=== PATIENT | female | born 1965 | race Caucasian/White ===

== ENCOUNTER → 2017-05-05 | Outpatient (CLI) | payer BC ==
[~2017-05-05] MED LIST: SERT50TA PO
--- NOTE | 2017-05-05 12:57 | MAMMOGRAPHY REPORT ---
BILATERAL DIGITAL SCREENING MAMMOGRAM TOMOSYNTHESIS WITH CAD: 05/05/2017 CLINICAL HISTORY: Routine screening. Patient has no complaints. TECHNIQUE: Breast tomosynthesis in addition to standard 2D mammography was performed. Current study was also evaluated with a Computer Aided Detection (CAD) system. COMPARISON: Comparison is made to exams dated: 05/03/2016 mammogram, 12/27/2013 mammogram, 12/24/2012 ma mmogram, 10/11/2012 mammogram, 12/22/2011 mammogram, and 12/17/2010 mammogram - [facility]. BREAST COMPOSITION: The tissue of both breasts is almost entirely fatty. FINDINGS: There is an irregular 9 mm asymmetry within the right superior posterior breast on the MLO view, not clearly evident on the cc view but thought to project laterally based on the tomosynthesis localizer bar. Recommend spot compression tomosynthesis views, right X CCL view, and possible breas t ultrasound for further evaluation. The remainder of both breasts are stable compared to prior exams, without suspicious masses, calcific ations, or areas of architectural distortion noted. Nodular asymmetry along the posterior nipple ceci e in the left breast on the cc view middle depth is stable compared to prior exams including the 2010 exam. IMPRESSION: ACR BI-RADS CATEGORY 0: INCOMPLETE EVALUATION: NEED ADDITIONAL IMAGING EVALUATION Right breast asymmetry, for which additional imaging evaluation is recommended. The patient will be called to schedule an appointment. Approximately 10% of breast cancers are not detected with mammography. A negative mammographic report should not delay biopsy if a clinically suggestive mass is present. Sulma Manriquez M.D. ah/:05/05/2017 07:50:57 Spa Consultant: Bibi MARTINEZ(R)(M), [facility] letter sent: Addl Imaging 0 BI-RADS Code: ACR BI-RADS Category 0: Incomplete Evaluation: Need Additional Imaging Evaluation
== END | disposition home or self-care (01) ==
LOC: C.MAMM 07:24
PROVIDERS: ATTEND Obstetrics & Gynecology
DX: Z12.31 Encounter for screening mammogram for malignant neoplasm of breast (principal); N64.89 Other specified disorders of breast

== ENCOUNTER → 2017-05-10 | Outpatient (CLI) | payer BC ==
[~2017-05-10] MED LIST changes: +HYDR-5688 PO
--- NOTE | 2017-05-10 14:12 | MAMMOGRAPHY REPORT ---
UNILATERAL RIGHT DIGITAL DIAGNOSTIC MAMMOGRAM TOMOSYNTHESIS AND TARGETED RIGHT ULTRASOUND: 05/10/2017 CLINICAL HISTORY: Callback from screening mammogram for right breast asymmetry. TECHNIQUE: Breast tomosynthesis in addition to standard 2D mammography was performed. Spot compress ion right MLO and XCCL 2-D and tomosynthesis images and right MLO 2-D and tomosynthesis images were o btained. COMPARISON: Comparison is made to exams dated: 05/05/2017 mammogram, 05/03/2016 mammogram, 12/27/2013 mammogram, and 12/24/2012 mammogram - [facility]. BREAST COMPOSITION: The tissue of the right breast is almost entirely fatty. FINDINGS: The additional mammographic images show an oval 5 mm mass within the right upper outer quad rant. The margins are not completely circumscribed on the additional images. Targeted ultrasound was performed of the right upper outer quadrant in the region of the mammographic asymmetry. In the right breast at 9:00, approximately 13 cm from the nipple, there is an oval hypoe choic non-circumscribed 5 x 2 x 4 m mass. This likely corresponds with the mammographic asymmetry an d is indeterminate. Recommend ultrasound-guided core needle biopsy for further evaluation. IMPRESSION: ACR BI-RADS CATEGORY 4: SUSPICIOUS, TARGETED ULTRASOUND ACR BI-RADS CATEGORY 4: SUSPICIO US Hypoechoic 5 mm mass in the right 9:00 breast on ultrasound, which likely corresponds with the mammog raphic mass. The mass is indeterminate and ultrasound-guided core needle biopsy is recommended for f urther evaluation. A phone call was made to the physician's office to confirm faxed results were received. The patient has been verbally notified of the results. She tentatively scheduled the biopsy before leaving the [facility]. Approximately 10% of breast cancers are not detected with mammography. A negative mammographic report should not delay biopsy if a clinically suggestive mass is present. Sulma Manriquez M.D. /:05/10/2017 11:53:52 Futures Trader: Bibi MARTINEZ(Aminata)(M), [facility] letter sent: Abnormal 4/5 BI-RADS Code: ACR BI-RADS Category 4: Suspicious Ultrasound BI-RADS: ACR BI-RADS Category 4: Suspici ous
== END | disposition home or self-care (01) ==
LOC: C.MAMM 08:44
PROVIDERS: ATTEND Obstetrics & Gynecology
DX: N63.10 Unspecified lump in the right breast, unspecified quadrant (principal)

== ENCOUNTER → 2017-05-17 | Outpatient (CLI) | payer BC ==
[~2017-05-17] MED LIST changes: -HYDR-5688 PO
--- NOTE | 2017-05-17 13:49 | Discharge Instructions ---
Discharge Instructions Procedure Procedure Date: May 17, 2017. Reason for visit: Right Mass. Discharge Discharge Date: May 17, 2017. Discharge Diagnosis: post right breast ultrasound guided core biopsy Instructions Activity Recommendations: Additional Limitations (see below) Return to School/Work: no limitations Recommended Home Diet: No Limitations Provider Instructions: ACTIVITY RECOMMENDATIONS: * No lifting, pushing, pulling or exercising the affected side for three days. RETURN TO SCHOOL/WORK: * You may return to work/school after the procedure, but do not perform any strenuous activities for 24 to 48 hours. MEDICATIONS: * Tylenol (two 325 mg) every four to six hours if needed for mild pain (if not allergic to Tylenol). DIET: * Resume previous diet. SPECIAL CARE INSTRUCTIONS: * Keep biopsy site dry for 24 hours. May shower after 24 hours, but do not soak (bathe) incision. * May remove Tegaderm (plastic patch) tomorrow AFTER showering. * Leave the steri-strips on for one week. Allow the steri-strips to fall off by themselves. If not off after one week, you may remove them. You may place a Bandaid crosswise over the strips, if desired. * Apply ice 10 minutes on and 10 minutes off as needed. * Wear a bra at bedtime to sleep more comfortably for 2-3 days. * Your referring physician should have the results after approximately 5 to 7 business days. * Call for unusual bleeding, fever, drainage, etc or if you have any questions call [phone] during normal business hours or after hours call Dr Dubose, . FOLLOW UP VISIT: Follow-up with Referring Physician as scheduled. Allergies Coded Allergies: Morphine (Verified Adverse Reaction, Severe, N/V, 05/10/11) Deondre Blanco Recommendations: Call your doctor if: * Temperature above 101 degrees * Pain not relieved by pain medicine ordered * There is increased drainage or redness from any incision * You have any unanswered questions or concerns. Your Doctors Instructions noted above were prepared by provider Katrina Dubose. Patient Signature Section: Patient Instructions Signature Page Latha Engel Patient (or Guardian) Signature/Date: I have read and understand the instructions given to me by my caregivers. Caregiver/RN/Doctor Signature/Date: The above-named patient and/or guardian has received patient instructions on this date. + Original Patient Signature Page (only) stays with chart. Please make copy for patient.
--- NOTE | 2017-05-18 14:53 | MAMMOGRAPHY REPORT ---
UNILATERAL RIGHT DIGITAL DIAGNOSTIC MAMMOGRAM TOMOSYNTHESIS: 05/17/2017 CLINICAL HISTORY: 52-year-old woman presents for ultrasound-guided core biopsy of a subtle isoechoic 5 mm mass in the 9:00 right breast, 13 mm from the nipple thought to correlate with a mammographic as ymmetry in the superior posterior breast on the MLO view. Please refer to the report from right breast ultrasound guided core biopsy performed at the same time for full detail. IMPRESSION: POST PROCEDURE IMAGING FOR MARKER PLACEMENT Please refer to the report from right breast ultrasound guided core biopsy performed at the same time for full detail. Approximately 10% of breast cancers are not detected with mammography. A negative mammographic report should not delay biopsy if a clinically suggestive mass is present. Katrina Dubose M.D. ay/:05/17/2017 13:35:38 College Athletic Director: Rama CHAUHAN)(Karine), [facility] BI-RADS Code: Post Procedure Imaging For Marker Placement
--- NOTE | 2017-05-18 14:53 | MAMMOGRAPHY REPORT ---
THIS REPORT HAS BEEN AMENDED. ULTRASOUND GUIDED BIOPSY RIGHT BREAST: 05/17/2017 CLINICAL HISTORY: 52-year-old woman called back from screening mammography for an asymmetry in the underwood perior posterior right breast on the MLO view, found to have a small 5 mm isoechoic mass in the 9:00 right breast on ultrasound. She presents for ultrasound-guided core biopsy. COMPARISON: Comparison is made to exams dated: 05/10/2017 mammogram, 05/10/2017 ultrasound, 05/05/20 17 mammogram, 05/03/2016 mammogram, 12/27/2013 mammogram, and 12/24/2012 mammogram - [facility]. PATIENT CONSENT: The procedure, risks and benefits were discussed with the patient and informed conse nt was obtained both verbally and in writing. Specific risks to this procedure include: bleeding, in fection, puncture of adjacent structure, nontarget biopsy, sampling error, pain, metal allergy and me dication reaction. PROCEDURE DESCRIPTION: A time out was performed and the right breast was agreed as the site of biopsy . The skin was prepped and draped in the usual sterile fashion. The isoechoic 5 mm solid appearing ma ss in the 9:00, far lateral right breast was chosen as the target for biopsy. Subcutaneous and intrap arenchymal 1% buffered lidocaine, with and without epinephrine, was administered as local anesthesia. A skin incision was made. Through the incision, 4 samples were taken with a 14 gauge Achieve biopsy device. A ribbon shaped metallic marker was placed at the biopsy site. Hemostasis was achieved after manual compression. The patient tolerated the procedure well and there was no immediate complication . The samples were sent to the pathology department in an appropriately labeled container. Postprocedure right CC (XCCL) and MLO 2-D and tomosynthesis images were obtained. A new ribbon-shape d biopsy marker clip is seen in the upper outer posterior right breast, aligning with the mammographi c asymmetry in question, confirming mammographicsonographic correlation. There is minimal hematoma/ lidocaine persistent at the biopsy site. IMPRESSION: ULTRASOUND GUIDED BIOPSY Status post ultrasound-guided core biopsy of a 5 mm isoechoic mass in the 9:00 right breast, which al igns with the mammographic asymmetry in question. A biopsy marker clip was placed at the site. The patient will receive notification of the biopsy results from her referring physician. Katrina Dubose M.D. ay/:05/17/2017 14:10:39 Attending Technologist: Rama CHAUHAN)(Karine), [facility] Shelter Supervisor: Dr. Katrina Dubose, [facility] AMENDMENT: 05/24/2017 Katrina Dubose M.D. Pathology results from the ultrasound-guided core biopsy of a small isoechoic mass in the 9:00 right breast yielded a low-grade spindle cell proliferation consistent with leiomyoma. Although this is a benign mass, given the rarity of the pathology results, consider surgical consultation for discussion of possible excision of this lesion.
== END | disposition home or self-care (01) ==
LOC: C.MAMM 12:47
PROVIDERS: ATTEND Obstetrics & Gynecology
DX: D24.1 Benign neoplasm of right breast (principal)

== ENCOUNTER → 2017-09-22 | Outpatient (CLI) | payer BC ==
[~2017-09-22] MED LIST changes: +HYDR-5688 PO; -SERT50TA PO
[2017-09-22 13:10] LABS: BASO % 0.4 %; BASO ABS # 0.03 K/uL (0-0.2); EOS % 1.2 %; EOS ABS # 0.08 K/uL (0-0.5); HEMATOCRIT 42.3 % (37-47); HEMOGLOBIN 14.5 g/dL (12.0-16.0); IG# 0.04 K/uL (0.00-0.02); LYMPH % 23.3 %; MEAN CELL VOLUME 88.5 fL (80-100); MEAN CORPUSCULAR HEMOGLOBIN 30.3 pg (25-34); MEAN CORPUSCULAR HGB CONC 34.3 g/dl (32-36); MEAN PLATELET VOLUME 10.3 fL (7.4-10.4); MONO % 10.5 %; MONO ABS # 0.72 K/uL (0.11-0.59); PLATELET COUNT 239 K/uL (130-400); RED CELL DISTRIBUTION WIDTH SD 42.4 fL (36.4-46.3); WHITE BLOOD COUNT 6.87 K/uL (4.8-10.8)
[2017-09-22 13:17] LABS: ALBUMIN 3.6 gm/dl (3.4-5.0); ALT/SGPT 29 U/L (12-78); AST/SGOT 18 U/L (15-37); BLOOD UREA NITROGEN 12 mg/dl (7-18); CALCIUM 8.5 mg/dl (8.5-10.1); CARBON DIOXIDE 24 mmol/L (21-32); CHOLESTEROL 194 mg/dl (0-200); CREATININE 0.77 mg/dl (0.60-1.20); GLUCOSE 94 mg/dl (70-99); POTASSIUM 3.9 mmol/L (3.5-5.1); SODIUM 139 mmol/L (136-145)
[2017-09-22 13:22] LABS: HEMOGLOBIN A1C 5.4 % (4.5-5.6)
[2017-09-22 13:27] LABS: ALKALINE PHOSPHATASE 67 U/L (45-117); LDL CHOLESTEROL (DIRECT) 138 mg/dl; TOTAL PROTEIN 7.2 gm/dl (6.4-8.2)
== END | disposition home or self-care (01) ==
LOC: C.LABSPEC 12:27
PROVIDERS: ATTEND Internal Medicine
DX: H47.10 Unspecified papilledema (principal); R51 Headache; R53.83 Other fatigue; E04.2 Nontoxic multinodular goiter

== ENCOUNTER → 2017-09-25 | Outpatient (CLI) | payer BC ==
--- NOTE | 2017-09-25 09:18 | DIAGNOSTIC IMAGING REPORT ---
(BARIUM SWALLOW) ESOPHAGUS CLINICAL HISTORY: DYSPHAGIA COMPARISON STUDY: None FLUOROSCOPY TIME: 1.1 minutes. NUMBER OF FLUOROSCOPIC IMAGES: 21 FINDINGS: The patient swallowed impressing granules and barium without difficulty. Rapid sequence swallows the AP and lateral projections reveal no evidence for aspiration. Degenerative changes are present within the cervical spine. No esophageal masses or ulcerations are generalized. The patient swallowed one half and barium tablet without difficulty. No reflux was delineated. IMPRESSION: Normal study Electronically signed by: Patrice Baptiste M.D. 09/25/2017 9:17 AM Dictated Date/Time: 09/25/2017 9:16 AM
== END | disposition home or self-care (01) ==
LOC: C.RAD 08:46
PROVIDERS: ATTEND Internal Medicine
DX: R13.10 Dysphagia, unspecified (principal)

== ENCOUNTER → 2017-09-28 | Outpatient (CLI) | payer BC ==
[~2017-09-28] MED LIST changes: +GADAVIST IV PRN
--- NOTE | 2017-09-28 22:08 | DIAGNOSTIC IMAGING REPORT ---
BRAIN COMBO HISTORY: 52 years-old Female PAPLIDEMIA,HEADACHES acute headache COMPARISON: None available TECHNIQUE: Multiplanar multisequence MRI of the brain was obtained both with and without the use of 13 mL Gadavist FINDINGS: Ux Designer localizer images demonstrate no gross abnormality. There is no restricted diffusion to suggest acute or subacute infarction. Midline fractures including the corpus callosum, brainstem, optic chiasm, infundibulum, pituitary and pineal glands appear unremarkable on the sagittal T1 series. There is no cerebellar tonsillar herniation. No acute intracranial hemorrhage, midline shift, abnormal extra-axial collections, hydrocephalus or intracranial mass. Minimal periventricular T2/FLAIR prolongation adjacent to the posterior horns is indeterminate and may reflect mild chronic microvascular ischemic changes. There is a 4 mm area of increased T2 signal involving the subcortical white matter adjacent to the left ventricular atria, possibly reflecting area of remote insult. Prominent perivascular space within the region of the inferior left lentiform nucleus measures 10 x 7 mm. There is no abnormal intra-axial or extra-axial enhancement identified. The major flow voids at the level of the skull base appear patent. The globes are symmetric and within normal limits. Prominent subarachnoid space about the bilateral optic nerves, image 8 series 5. No significant flattening of the posterior sclera identified. There is mild vertical tortuosity of the optic nerves. Trace left mastoid effusion. The globes, scalp and soft tissues are within normal limits. IMPRESSION: 1. No acute intracranial abnormality identified. 2. No abnormal enhancement. 3. Prominent subarachnoid space about the bilateral optic nerves with mild optic nerve tortuosity are nonspecific findings, however have been reported in cases of idiopathic intracranial hypertension (pseudotumor cerebri). These findings could be correlated with clinical signs and possibly nonemergent lumbar puncture with opening pressure. The above report was generated using voice recognition software. It may contain grammatical, syntax or spelling errors. Electronically signed by: Allen Cerda M.D. 09/28/2017 10:07 PM Dictated Date/Time: 09/28/2017 9:20 PM
== END | disposition home or self-care (01) ==
LOC: C.MRI 18:26
PROVIDERS: ATTEND Internal Medicine
DX: H47.10 Unspecified papilledema (principal); R51 Headache

== ENCOUNTER → 2017-10-11 | Day surgery (SDC) | payer BC ==
[~2017-10-11] VITALS: Ht 169.5 cm; Wt 131.5 kg
[2017-10-11] VITALS (9 sets, daily range): BP systolic 104–156; BP diastolic 53–72; PULSE 62–82; TEMP 36.7–37.1; O2SAT 94–98; Ht 169.5 cm; Wt 131.5 kg
[~2017-10-11] MED LIST changes: -GADAVIST IV PRN
--- NOTE | 2017-10-11 08:58 | Discharge Instructions ---
Discharge Instructions Procedure Procedure Date: October 11, 2017. Reason for visit: Pseudotumor Cerebri/With Opening Pressure. Discharge Discharge Date: October 11, 2017. Discharge Diagnosis: s/p lumbar puncture Instructions Activity Recommendations: 1 Day-May resume regular activity, 48 Hours of decreased exertion Return to School/Work: no limitations Recommended Home Diet: No Limitations Provider Instructions: ACTIVITY RECOMMENDATIONS: * Rest today. * Resume regular activity in one day. MEDICATIONS: * May take Tylenol or Ibuprofen as needed for pain. DIET: * Resume previous diet. SPECIAL CARE INSTRUCTIONS: Call your doctor if: * Temperature above 101 degrees F. * Pain not relieved by pain medicine ordered. * Increased drainage or redness from incision. * Notify your doctor with any questions or concerns. Call your doctor or go to the nearest Emergency Department if you experience: * Increased chest pain or shortness of breath. FOLLOW UP VISIT: Follow-up with Referring Physician as scheduled. Allergies Coded Allergies: Morphine (Verified Adverse Reaction, Severe, N/V, 10/11/17) Deondre Blanco Recommendations: Call your doctor if: * Temperature above 101 degrees * Pain not relieved by pain medicine ordered * There is increased drainage or redness from any incision * You have any unanswered questions or concerns. Your Doctors Instructions noted above were prepared by provider Femi Stubbs. Patient Signature Section: Patient Instructions Signature Page Latha Engel Patient (or Guardian) Signature/Date: I have read and understand the instructions given to me by my caregivers. Caregiver/RN/Doctor Signature/Date: The above-named patient and/or guardian has received patient instructions on this date. + Original Patient Signature Page (only) stays with chart. Please make copy for patient.
--- NOTE | 2017-10-11 09:02 | DIAGNOSTIC IMAGING REPORT ---
FLUOROSCOPICALLY GUIDED LUMBAR PUNCTURE CLINICAL HISTORY: Increased optic nerve pressure. PROCEDURE: The procedure, risks and benefits were discussed with the patient including the risk of spinal headache, bleeding and infection. The patient agreed to the procedure and informed written consent was obtained. The procedure was performed by Dr. Stubbs following a timeout. The right L3-L4 interlaminar space was targeted. Skin overlying the space was prepped and draped in sterile fashion and local anesthesia was achieved with 1% lidocaine. Under intermittent fluoroscopic guidance, a 5 inch 22-gauge spinal needle was directed into the thecal sac. There was immediate return of clear cerebrospinal fluid. Opening pressure was 35 cm of water. A total of 8 cc of clear cerebrospinal fluid was collected in 4 vials and sent to laboratory for analysis. IMPRESSION: 1. Fluoroscopically guided lumbar puncture with collection of 8 cc of clear cerebrospinal fluid which was sent to laboratory for analysis. 2. Elevated opening pressure of 35 cm of water. Electronically signed by: Femi Stubbs M.D. 10/11/2017 9:00 AM Dictated Date/Time: 10/11/2017 8:56 AM
[2017-10-11 09:37] LABS: CSF TOTAL PROTEIN 29.8 mg/dl (15.0-45.0)
== END | disposition home or self-care (01) ==
LOC: C.ACU 07:21
PROVIDERS: ATTEND Psychiatry & Neurology Neurology
DX: H47.10 Unspecified papilledema (principal)

== ENCOUNTER 2020-10-15 10:56 | Inpatient (IN) ==
[2020-10-15] MEDS ORDERED: LIDOCAINE 1% LOCAL 20 ML VIAL ONE (11:58)
[2020-10-15 12:27] LABS: Bilirubin,Total 0.6 mg/dl (0.2-1); Total Protein 7.4 gm/dl (6.4-8.2)
--- NOTE | 2020-10-15 12:42 | History & Physical Bridge Note ---
Date of Service October 15, 2020 History & Physical Bridge Note I have examined the patient, reviewed the History & Physical and in the interval since the performance of the History & Physical I have noted the following changes of clinical significance: no changes noted
--- NOTE | 2020-10-15 12:49 | Procedure Note ---
Procedure Note Date of Service October 15, 2020 Procedure: Pigtail chest tube insertion Linux Unix Administrator: Dr. Lou Mccall Indication: Right-sided loculated effusion Consent: Signed by patient and verified with timeout prior to procedure Anesthesia: 1% lidocaine without epinephrine local Procedure: Consent was verified and timeout performed. Appropriate imaging studies were reviewed prior to the procedure. Patient was placed in a seated position. Appropriate site above the diaphragm on the right midaxillary line fourth intercostal space for chest tube insertion was selected. The skin was prepped and draped in normal sterile fashion. Lidocaine was used for local analgesia. Fluid was aspirated via the finder needle. A small skin lenore was made with the scalpel and the catheter over the needle apparatus was advanced over the rib into the pleural space. With the help of guidewire and Seldinger technique, 14 Romanian pigtail catheter was inserted and connected to Pleur-evac. Serous fluid was aspirated. Initial air leak was appreciated lasted for less than 10 seconds. It has been connected to -20 suction No air leak appreciated after that. Chest x-ray to follow Fluid was sent for labs, culture and cytology. The patient tolerated the procedure without obvious complication Complications: None Blood loss: Less than 2 cc. Coding CPT Codes Pulmonary/Thoracic - Pulmonary and Thoracic: 12563 Tube thoracostomy ([id number]) Pulmonary/Thoracic - Pulmonary and Thoracic: 14989 Pleural drainage w/imaging ([id number]) [facility] Procedure Codes (Charges) Pulmonary/Thoracic Procedure 1: Pulmonary and Thoracic: 94274 Tube thoracostomy Procedure 2: Pulmonary and Thoracic: 45118 Pleural drainage w/imaging
--- NOTE | 2020-10-15 12:52 | Communication Note ---
Date of Service: October 15, 2020 Pulmonary addendum: 55-year-old female with past medical history of pseudotumor cerebri was seen by me in the clinic on 10/14/2020 for right-sided pleural effusion Patient was here for thoracentesis. On bedside ultrasound I found that patient had loculations. Given the loculations and the high probability of it being parapneumonic/empyema Plan was to have a chest tube placed in and likely needing MIST protocol Patient already has a chest tube placed and she tolerated the procedure well. She She is hemodynamically stable. States that she is feeling much better. Dr Randhawa, the admitting hospitalist was called and signout was given. Patient was also updated regarding the same. Please note the above document was generated using voice recognition software. It may contain grammatical, syntax or spelling errors.Any formal questions or concerns about the content, text or information contained within the body of this dictation should be directly addressed to the provider for clarification. Coding Level of Care Code None
--- NOTE | 2020-10-15 12:54 | XRay Report ---
SINGLE VIEW CHEST CLINICAL HISTORY: Chest tube placement. FINDINGS: An AP, portable, upright chest radiograph is compared to chest x-ray and chest CT dated 09/20. The cardiomediastinal silhouette is unremarkable. A pigtail chest tube projects over the righ t lower chest. There is a residual loculated right pleural effusion with right basilar consolidation. This is decreased in size from previous. The left lung appears clear. No pneumothorax is seen. The s keletal structures are osteopenic. The bony thorax is grossly intact. IMPRESSION: 1. A right-sided chest tube has been placed as above. 2. There is a residual right pleural effusion with associated right basilar consolidation. This has d ecreased in size from previous. 3. No pneumothorax is seen. ACT 112: Negative or not required by law. Electronically signed by: Marlon Helm M.D. 10/15/2020 12:53 PM
[2020-10-15] MEDS ORDERED: ACETAMINOPHEN 325 MG TAB PO PRN (13:02)
[2020-10-15 13:17] LABS: Glucose Pleural Fluid 76 mg/dl
[2020-10-15 13:24] LABS: Amylase Pleural Fluid 19 U/L; LDH Pleural Fluid 323 U/L; Total Protein Pleural Fluid 4.6 g/dl
[2020-10-15 13:34] LABS: Appearance Pleural Fluid HAZY; Basophils, Fluid 0 %; Color Pleural Fluid YELLOW; Eosinophils, Fluid 8 %; Lymphocytes, Fluid 60 %; Mono,Macrophage,Mesothelial 5 %; Neutrophils, Fluid 27 %; RBC Pleural Fluid (A) < 3000 /uL; Source Pleural Fluid RIGHT LUNG; WBC Pleural Fluid (A) 665 /uL
--- NOTE | 2020-10-15 14:18 | History & Physical Report ---
Date of Service October 15, 2020 Assessment & Plan (1) Pleural effusion: Mrs. Engel is a 55 year old female with a history of Pseudotumor Cerebri and Obesity who developed a Dry Non-productive Cough over several weeks followed by New Onset Exertional Dyspnea 4 days ago. Patient contacted her PCP and was prescribed Levaquin 750 mg daily along with an anti-tussive. CXR was ordered by PCP showing a large right pleural effusion. Patient was referred to pulmonology -- Dr. Mccall met with her yesterday and arranged for a thoracentesis today. Her Parapneumonic Pleural Effusion appears to be loculated, so a chest tube was inserted. Fluid sent for analysis, culture, etc and admission was recommended for further evaluation and monitoring. -- Admit to Med-Surg. -- Blood cultures x 2. -- Septic workup. -- Await pleural effusion analysis, culture, micro- exam. -- IV Levaquin 750 mg q 24 hours. -- Chest tube attached to vacuum. -- Continue anti-tussive as needed. -- Dr. Mccall consulted. -- DVT prophylaxis. History of Present Illness Chief Complaint: -- Loculated Right Pleural Effusion s/p Chest Tube. Primary Care Provider: Guy Horowitz MD Mrs. Engel is a 55 year old female with a history of Pseudotumor Cerebri and Obesity who developed a Dry Non-productive Cough over several weeks followed by New Onset Exertional Dyspnea 4 days ago. Patient contacted her PCP and was prescribed Levaquin 750 mg daily along with an anti-tussive. CXR was ordered by PCP showing a large right pleural effusion. Patient was referred to pulmonology -- Dr. Mccall met with her yesterday and arranged for a thoracentesis today. Her Parapneumonic Pleural Effusion appears to be loculated, so a chest tube was inserted. Fluid sent for analysis, culture, etc and admission was recommended. 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 She offers no complaints. She denies any fever, chills, chest pain, pain at chest tube site, or any hemoptysis. 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 Allergies Allergy/AdvReac Type Severity Reaction Status Date / Time morphine AdvReac Severe N/V Verified 10/14/20 08:57 Home Medications Medication Instructions Recorded Confirmed Type Robitussin A-C 2 tsp PO Q4 10/15/20 10/15/20 History acetazolamide [Diamox] 250 mg PO TID 10/15/20 10/15/20 History levofloxacin [Levaquin] 750 mg PO DAILY 10/15/20 10/15/20 History Past Med/Surg History Social History Smoking Status: Never smoker Second Hand Exposure: No; Do You Dip or Chew Tobacco: No; Tobacco Cessation Education Requested by Patient: No Hx Alcohol Use: No Hx Substance Use: No Preferred Language: Georgian Communication Ability: Effective Testing Coordinator Required: No Beliefs That Will Affect Care: None Current Living Situation: Spouse Other Information That Helps Us Care for You: No Feels Safe at Home: Yes Safety Concerns: Feels Safe At This Time Assistive Devices: None Review of Systems Review of Systems: All systems reviewed & are unremarkable except as noted in Subjective Physical Exam Physical Exam: GENERAL: Patient in no acute distress. HEENT: Head is atraumatic, normocephalic. EOM's intact. Facies symmetric. No perioral cyanosis. NECK: No JVD. JVP is at the level of the clavicle sitting upright. Carotid upstrokes are + 2 bilaterally. No bruits are noted. CHEST/LUNGS: Absent breath sounds in right lower chest. Otherwise lungs clear. Chest tube in right lateral chest. CVS: S1 and S2 are regular without murmurs, gallops, or rubs. PMI is nondisplaced. No lifts, heaves, or thrills. No abdominal aortic or renal bruits. ABDOMINAL EXAM: Bowel sounds are present. No masses, organomegaly, or tenderness. EXTREMITIES: No clubbing or cyanosis. No edema. Intact posterior tibial and radial pulses bilaterally. NEUROLOGIC EXAM: Patient is awake, alert, and oriented. Pleasant and cooperative. Answers questions appropriately. Speech is clear. Normal movement in all 4 extremities. Gait pattern was not assessed. Results & Data Results & Data ([facility]) Vital Signs (Past 12 Hours) Vital Signs Temp Pulse Resp BP Pulse Ox 10/15/20 13:45 78 20 137/64 95 10/15/20 13:30 76 20 139/64 97 10/15/20 13:15 74 20 127/74 96 10/15/20 13:00 76 20 124/82 96 10/15/20 12:45 36.9 C 73 20 117/68 95 10/15/20 11:19 36.6 C 80 20 108/77 96 Laboratory Results Laboratory Results - last 24 hr 10/15/20 10/15/20 10/15/20 11:55 11:55 14:06 Total Bilirubin 0.6 Lactate Dehydrogenase 153 Total Protein 7.4 Albumin 3.0 L Fluid Neutrophils % Fluid Lymphocytes % Fluid Eosinophils % Fluid Basophils % Fluid Meso/Macro/Waller % Fluid Comment Pleural Fluid Source Pleural Color Pleural Appearance Pleural pH Pleural WBC Pleural RBC Pleural Total Protein Pleural LDH Pleural Glucose Pleural Amylase Pleural Cholesterol COVID-19 Eval Order Covid19 IDNow atMIAC SARS-CoV-2, RNA, NAAT 10/15/20 10/15/20 10/15/20 14:06 Unknown Unknown Total Bilirubin Lactate Dehydrogenase Total Protein Albumin Fluid Neutrophils % 27 Fluid Lymphocytes % 60 Fluid Eosinophils % 8 Fluid Basophils % 0 Fluid Meso/Macro/Waller % 5 Fluid Comment Pleural Fluid Source RIGHT LUNG Pleural Color YELLOW Pleural Appearance HAZY Pleural pH 7.29 L Pleural WBC 665 Pleural RBC < 3000 Pleural Total Protein 4.6 Pleural LDH 323 Pleural Glucose 76 Pleural Amylase 19 Pleural Cholesterol COVID-19 Eval Order SARS-CoV-2, RNA, NAAT Pending 10/15/20 Unknown Total Bilirubin Lactate Dehydrogenase Total Protein Albumin Fluid Neutrophils % Fluid Lymphocytes % Fluid Eosinophils % Fluid Basophils % Fluid Meso/Macro/Waller % Fluid Comment Pleural Fluid Source Pleural Color Pleural Appearance Pleural pH Pleural WBC Pleural RBC Pleural Total Protein Pleural LDH Pleural Glucose Pleural Amylase Pleural Cholesterol Pending COVID-19 Eval Order SARS-CoV-2, RNA, NAAT Diagnostic Findings CXR 10/15/20: An AP, portable, upright chest radiograph is compared to chest x-ray and chest CT dated 10/12/2020. The cardiomediastinal silhouette is unremarkable. A pigtail chest tube projects over the right lower chest. There is a residual loculated right pleural effusion with right basilar consolidation. This is decreased in size from previous. The left lung appears clear. No pneumothorax is seen. The skeletal structures are osteopenic. The bony thorax is grossly intact. IMPRESSION: 1. A right-sided chest tube has been placed as above. 2. There is a residual right pleural effusion with associated right basilar consolidation. This has decreased in size from previous. 3. No pneumothorax is seen. CHEST CT SCAN 09/22/20: 1. There is a moderate to large and simple appearing right pleural effusion with significant atelectasis of the right lower lung. Superimposed pneumonia would be impossible to exclude. 2. There is no left pleural effusion. 3. An indeterminant 9 mm pulmonary nodule is seen in the left lower lobe. This should be followed as per the Fleischner criteria. See below. 4. Hepatic steatosis. 5. Additional findings as above. Medications Administered Medications Robitussin A-C 2 tsp PO Q4 10/15/20 [History Confirmed 10/15/20] acetazolamide [Diamox] 250 mg PO TID 10/15/20 [History Confirmed 10/15/20] levofloxacin [Levaquin] 750 mg PO DAILY 10/15/20 [History Confirmed 10/15/20] Home Medications Acetaminophen (Acetaminophen 325 Mg Tab) 650 mg PO Q6H PRN PRN Reason: Pain Stop: 11/14/20 13:01 Alteplase, Recombinant 10 mg/ (Syringe) 60 mls @ 720 mls/hr IPL Q12H CALLUM; Protocol Stop: 10/18/20 03:04 Dornase Jc 5 ml/ Syringe 30 mls @ 0.0006 mls/min IPL Q12H CALLUM; Protocol Stop: 10/18/20 14:29 Code Status & VTE Plan Code Status Full Code VTE Prophylaxis Plan VTE Prophylaxis will be ordered: Yes Supervising Physician Co-Signing Physician Notes Reviewed, discussed case with MIGUEL as well as Dr. Mccall. Agree with her note above. Patient initially presented same-day surgery for thoracentesis. During ultrasound, she was found to have multiple loculated effusions. Dr. Fine decided to place a right chest tube. Patient subsequently admitted for further treatment. Plan to monitor drainage from chest tube, patient is now on Levaquin for possible infection pending culture results. Consult pulmonology to follow as inpatient. PG Care Time/CCT Total # of Minutes Spent Total Time Spent with Patient: Total time spent is greater than 50% in coordination of care (as documented) at patient's floor/unit and/or counseling patient:40 Coding Level of Care Code 53151 Initial Inpt Care Lvl 3 Diagnoses Pleural effusion J90 Time Spent (min) 55
[2020-10-15] MEDS ORDERED: ONDANSETRON INJ 2 MG/ML 2 ML VIAL IV PRN (15:31)
[2020-10-15] MEDS ORDERED: MAGNESIUM HYDROXIDE SUSP 30 ML UDC PO PRN (15:31)
[2020-10-15] MEDS ORDERED: POLYETHYLENE (MIRALAX) 17 GM PACK PO PRN (15:31)
[2020-10-15] MEDS ORDERED: ZOLPIDEM TARTRATE 5 MG TAB PO PRN (15:31)
[2020-10-15] MEDS ORDERED: ALUMINUM/MAGNESIUM SUSP 30 ML UDC PO PRN (15:31)
[2020-10-15] MEDS ORDERED: guaiFENesin SUGAR FREE 100 MG/5 ML UDC PO PRN (15:42)
[2020-10-15] MEDS: ALTEPLASE, RECOMBINANT 10 MG in SYRINGE 50 ML IPL SCH (16:10)
[2020-10-15] MEDS: levoFLOXacin/D5W 750 MG/150 ML BAG IV SCH (16:55)
[2020-10-15] MEDS: acetaZOLAMIDE 250 MG TAB PO SCH ×2 (16:56→21:13)
[2020-10-15] MEDS: DORNASE ALFA 5 ML in SYRINGE 25 ML IPL SCH (17:11)
[2020-10-15] MEDS: ACETAMINOPHEN 325 MG TAB PO PRN (19:42)
[2020-10-15] MEDS: HEPARIN SOD 5,000 UNIT/0.5 ML VIAL SQ SCH (21:12)
[2020-10-16] MEDS: ACETAMINOPHEN 325 MG TAB PO PRN ×3 (05:34→22:47)
[2020-10-16] MEDS: HEPARIN SOD 5,000 UNIT/0.5 ML VIAL SQ SCH ×3 (05:35→20:58)
[2020-10-16 06:19] LABS: Basophils # (auto) 0.03 K/uL (0-0.2); Basophils % (auto) 0.4 %; Eosinophils # (auto) 0.11 K/uL (0-0.5); Eosinophils % (auto) 1.6 %; Hematocrit (blood only) 41.4 % (37-47); Hemoglobin 13.8 g/dL (12.0-16.0); Immature Granulocytes # (auto) 0.03 K/uL (0.00-0.02); Immature Granulocytes % (auto) 0.4 %; Lymphocytes # (auto) 1.18 K/uL (1.2-3.4); Lymphocytes % (auto) 16.8 %; Mean Corpuscular Hemoglobin 28.9 pg (25-34); Mean Corpuscular Hgb Conc 33.3 g/dL (32-36); Mean Corpuscular Volume 86.8 fL (80-100); Mean Platelet Volume 9.2 fL (7.4-10.4); Monocytes # (auto) 0.84 K/uL (0.11-0.59); Neutrophils # (auto) 4.83 K/uL (1.4-6.5); Neutrophils % (auto) 68.8 %; Platelet Count 392 K/uL (130-400); RDW Coefficient of Variation 13.4 % (11.5-14.5); Red Blood Count 4.77 M/uL (4.2-5.4); White Blood Count 7.02 K/uL (4.8-10.8)
[2020-10-16 06:49] LABS: BUN Creatinine Ratio 19.4 (10-20); Calcium 8.7 mg/dl (8.5-10.1); Creatinine Clr Calc Pharmacy 120.6 ml/min; Est GFR (African American) 110.8 ml/min; Est GFR (Non-African American) 95.6 ml/min; Potassium 3.5 mmol/L (3.5-5.1)
[2020-10-16] MEDS: ALTEPLASE, RECOMBINANT 10 MG in SYRINGE 50 ML IPL SCH ×2 (07:49→18:27)
[2020-10-16] MEDS: acetaZOLAMIDE 250 MG TAB PO SCH ×3 (07:54→20:58)
--- NOTE | 2020-10-16 08:25 | XRay Report ---
XR chest 1V portable CLINICAL HISTORY: Chest tube follow-up COMPARISON STUDY: 10/15/2020 FINDINGS: The cardiac and mediastinal contours remain stable. There is a right-sided pigtail pleural catheter. There is no pneumothorax. There is improving aeration of the right lung base. Trace right p leural fluid is suspected.[ IMPRESSION: 1. No change in position of the right-sided chest tube 2. Decreasing right pleural effusion with improving aeration of the right lung base. ACT 112: Negative or not required by law. Electronically signed by: Patrice Baptiste M.D. 10/16/2020 8:24 AM
[2020-10-16] MEDS: DORNASE ALFA 5 ML in SYRINGE 25 ML IPL SCH ×2 (08:50→19:48)
--- NOTE | 2020-10-16 11:00 | Pulmonary Consultation ---
Date of Consultation October 16, 2020 Assessment & Plan (1) Loculated pleural effusion: --Loculated right-sided pleural effusion S/p pigtail catheter placement 10/15/2020, fluid exudative as per lights criteria Mostly lymphocytic Pleural fluid: LDH 323, protein 4.6, pH 7.29, glucose 76 Serum: LDH 153, total protein 7.4 Likely represents parapneumonic effusion. Follow-up culture Continue with mist protocol --Right lower lobe pneumonia COVID-19 PCR negative ESR 81 Continue with antibiotics Procalcitonin 0.05 Plan: Chest x-ray from today shows improvement in the right-sided pleural effusion. Chest tube level 1100 mL. No airleak appreciated. Continue with mist protocol Continue with antibiotics Please note the above document was generated using voice recognition software. It may contain grammatical, syntax or spelling errors.Any formal questions or concerns about the content, text or information contained within the body of this dictation should be directly addressed to the provider for clarification. (2) Pneumonia: History of Present Illness Attending Physician: Philip Dumas History of Present Illness 55-year-old female coming to pulmonary because of right-sided pleural effusion Past medical history: Glaucoma, morbid obesity Patient is known to me from the clinic. Yesterday she came to the hospital to have same-day thoracentesis done. On the ultrasound she was found to have loculations. Plan was made to have chest tube insertion instead At the time of examination today patient said that she is feeling much better. Overnight she did complain of some tenderness at the site of the chest tube. Denies any shortness of breath, no cough, no headache, no nausea, no vomiting. Denies any fever or chills. No dysuria, no diarrhea. Fair appetite. Social history: Non-smoker, no illicit drug use, no alcohol use. 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 No exposure to any chemicals or fumes Pets: None. 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 Allergies Allergy/AdvReac Type Severity Reaction Status Date / Time morphine AdvReac Severe N/V Verified 10/14/20 08:57 Home Medications Medication Instructions Recorded Confirmed Type Robitussin A-C 2 tsp PO Q4 10/15/20 10/15/20 History acetazolamide [Diamox] 250 mg PO TID 10/15/20 10/15/20 History levofloxacin [Levaquin] 750 mg PO DAILY 10/15/20 10/15/20 History Patient History Social History Smoking Status: Never smoker Second Hand Exposure: No; Do You Dip or Chew Tobacco: No; Tobacco Cessation Education Requested by Patient: No Hx Alcohol Use: No Hx Substance Use: No Preferred Language: Tamazight Communication Ability: Effective Senior Software Developer Required: No Beliefs That Will Affect Care: None Current Living Situation: Spouse Other Information That Helps Us Care for You: No Feels Safe at Home: Yes Safety Concerns: Feels Safe At This Time Assistive Devices: None Review of Systems Review of Systems: All systems reviewed & are unremarkable except as noted in HPI & below Physical Exam Physical Exam: Constitutional: No acute distress HEENT: EOMI, PERRLA Respiratory system: Good air entry bilaterally, no wheeze, no rhonchi, mild crackles right lower lobe CVS: S1-S2 positive, no murmurs or gallops Abdomen: Soft, nontender, nondistended, positive bowel sounds x4, obese Extremities: +2 pulses bilaterally radialis/ dorsalis pedis, no cyanosis, no edema Neuro: Awake alert oriented x3 Psych: Normal mood and affect G/U: No Aiken Right-sided chest tube in place Skin: no rashes, warm and dry Lymphatic: no cervical or axillary lymphadenopathy Results & Data Results & Data ([facility]) Vital Signs (Past 12 Hours) Vital Signs Temp Pulse Resp BP Pulse Ox 10/16/20 07:53 36.7 C 67 16 145/77 H 97 10/16/20 05:50 10/16/20 05:50 PG Care Time/CCT Total # of Minutes Spent Total Time Spent with Patient: Total time spent is greater than 50% in coordination of care (as documented) at patient's floor/unit and/or counseling patient: Coding Level of Care Code 33929 Initial Inpt Care Lvl 3 Diagnoses Loculated pleural effusion J90 Pneumonia J18.9
[2020-10-16] MEDS: levoFLOXacin/D5W 750 MG/150 ML BAG IV SCH (16:45)
--- NOTE | 2020-10-16 22:12 | Hospitalist Progress Note ---
Date of Service October 16, 2020 Assessment & Plan (1) Loculated pleural effusion: Mrs. Engel is a 55 year old female with a history of Pseudotumor Cerebri and Obesity who developed a Dry Non-productive Cough over several weeks followed by New Onset Exertional Dyspnea 4 days ago. Patient contacted her PCP and was prescribed Levaquin 750 mg daily along with an anti-tussive. CXR was ordered by PCP showing a large right pleural effusion. Patient was referred to pulmonology -- Dr. Mccall met with her yesterday and arranged for a thoracentesis today. Her Parapneumonic Pleural Effusion appears to be loculated, so a chest tube was inserted. Fluid sent for analysis, culture, etc and admission was recommended for further evaluation and monitoring. -- Admit to Med-Surg. -- Blood cultures x 2. -- Septic workup. -- Appears exudative. -will continue current antibiotics as stated below -- IV Levaquin 750 mg q 24 hours. -- Chest tube attached to vacuum. -- Continue anti-tussive as needed. -- Dr. Mccall consulted. -- DVT prophylaxis. (2) Pneumonia: as stated above. Admission and Anticipated Discharge Date Admission Date: October 15, 2020 Subjective Patient reports feeling well. She has no new complaints. Review of Systems Review of Systems: All systems reviewed & are unremarkable except as noted in HPI & below Physical Exam Physical Exam: GENERAL: Patient in no acute distress. HEENT: Head is atraumatic, normocephalic. EOM's intact. Facies symmetric. No perioral cyanosis. NECK: No JVD. JVP is at the level of the clavicle sitting upright. Carotid up strokes are + 2 bilaterally. No bruits are noted. CHEST/LUNGS: Absent breath sounds in right lower chest. Otherwise lungs clear. Chest tube in right lateral chest. CVS: S1 and S2 are regular without murmurs, gallops, or rubs. PMI is nondisplaced. No lifts, heaves, or thrills. No abdominal aortic or renal bruits. ABDOMINAL EXAM: Bowel sounds are present. No masses, organomegaly, or tendern ess. EXTREMITIES: No clubbing or cyanosis. No edema. Intact posterior tibial and radial pulses bilaterally. NEUROLOGIC EXAM: Patient is awake, alert, and oriented. Pleasant and cooperative. Answers questions appropriately. Speech is clear. Normal movement in all 4 extremities. Gait pattern was not assessed. Results & Data Results & Data ([facility]) Vital Signs (Past 12 Hours) Vital Signs Temp Pulse Resp BP Pulse Ox 10/16/20 15:30 37.0 C 73 16 129/69 94 10/16/20 11:34 36.8 C 75 16 142/82 H 97 PG Care Time/CCT Total # of Minutes Spent Total Time Spent with Patient: Total time spent is greater than 50% in coordination of care (as documented) at patient's floor/unit and/or counseling patient: Coding Level of Care Code 53205 Subseq Hosp Care Lvl 3 Diagnoses Loculated pleural effusion J90 Pneumonia J18.9 Time Spent (min) 25
[2020-10-17] MEDS: ALTEPLASE, RECOMBINANT 10 MG in SYRINGE 50 ML IPL SCH ×2 (06:10→18:22)
[2020-10-17 06:20] LABS: Basophils # (auto) 0.04 K/uL (0-0.2); Basophils % (auto) 0.4 %; Eosinophils % (auto) 2.1 %; Hematocrit (blood only) 41.3 % (37-47); Hemoglobin 14.3 g/dL (12.0-16.0); Immature Granulocytes # (auto) 0.04 K/uL (0.00-0.02); Immature Granulocytes % (auto) 0.4 %; Lymphocytes % (auto) 17.1 %; Mean Corpuscular Hemoglobin 29.5 pg (25-34); Mean Corpuscular Hgb Conc 34.6 g/dL (32-36); Mean Corpuscular Volume 85.3 fL (80-100); Mean Platelet Volume 9.4 fL (7.4-10.4); Monocytes # (auto) 1.12 K/uL (0.11-0.59); Neutrophils # (auto) 6.35 K/uL (1.4-6.5); Platelet Count 405 K/uL (130-400); RDW Coefficient of Variation 13.5 % (11.5-14.5); Red Blood Count 4.84 M/uL (4.2-5.4); White Blood Count 9.35 K/uL (4.8-10.8)
[2020-10-17] MEDS: HEPARIN SOD 5,000 UNIT/0.5 ML VIAL SQ SCH ×3 (06:20→21:14)
[2020-10-17 06:52] LABS: BUN Creatinine Ratio 17.6 (10-20); Calcium 9.2 mg/dl (8.5-10.1); Creatinine Clr Calc Pharmacy 133.6 ml/min; Est GFR (African American) 117.5 ml/min; Est GFR (Non-African American) 101.4 ml/min; Potassium 3.3 mmol/L (3.5-5.1)
--- NOTE | 2020-10-17 07:38 | XRay Report ---
XR chest 1V portable CLINICAL HISTORY: f/u COMPARISON STUDY: Chest CT October 12, 2020. Chest radiograph October 16, 2020. FINDINGS: Right pleural catheter remains in place. There has been interval development of a small lat eral right hemithorax. Trace residual right pleural effusion is noted with mild right lung airspace o pacity, slightly increased since prior exam. Cardiac size is normal. IMPRESSION: 1. Right pleural catheter in place. Interval development of a small right pneumothorax. 2. No significant change in a trace residual right pleural effusion. Slight increase in right lung ai rspace opacity. . ACT 112: Negative or not required by law. Electronically signed by: Femi Stubbs M.D. 10/17/2020 7:37 AM
[2020-10-17] MEDS: DORNASE ALFA 5 ML in SYRINGE 25 ML IPL SCH ×2 (07:55→20:04)
[2020-10-17] MEDS: acetaZOLAMIDE 250 MG TAB PO SCH ×3 (09:07→21:14)
[2020-10-17] MEDS: ACETAMINOPHEN 325 MG TAB PO PRN ×2 (10:19→21:14)
--- NOTE | 2020-10-17 13:42 | Pulmonology Progress Note ---
Date of Service October 17, 2020 Assessment & Plan (1) Loculated pleural effusion: --Loculated right-sided pleural effusion S/p pigtail catheter placement 10/15/2020, fluid exudative as per lights criteria Mostly lymphocytic Pleural fluid: LDH 323, protein 4.6, pH 7.29, glucose 76 Serum: LDH 153, total protein 7.4 Likely represents parapneumonic effusion. Cultures negative to date. Continue with mist protocol --Right lower lobe pneumonia COVID-19 PCR negative ESR 81 Continue with antibiotics Procalcitonin 0.05 Plan: Chest x-ray from today shows small lateral right-sided pneumothorax. On asking the nurse the x-ray was taken right after the medication was instilled in the pleural space. I increased the suction to -30. Chest tube level 520 mL. No airleak appreciated. 2 more doses of mist protocol. I will repeat CT chest around noon tomorrow. Continue with antibiotics Please note the above document was generated using voice recognition software. It may contain grammatical, syntax or spelling errors.Any formal questions or concerns about the content, text or information contained within the body of this dictation should be directly addressed to the provider for clarification. (2) Pneumonia: Admission and Anticipated Discharge Date Admission Date: October 15, 2020 Subjective Patient seen and examined at bedside. No acute distress, no adverse events o vernight. Patient denies any chest pain, no shortness of breath. Patient has been moving around in the castillo. Tolerating mist protocol. Review of Systems Review of Systems: All systems reviewed & are unremarkable except as noted in Subjective Physical Exam Physical Exam: Constitutional: No acute distress HEENT: EOMI, PERRLA Respiratory system: Good air entry bilaterally, no wheeze, no rhonchi, minimal crackles right lower lobe CVS: S1-S2 positive, no murmurs or gallops Abdomen: Soft, nontender, nondistended, positive bowel sounds x4, obese Extremities: +2 pulses bilaterally radialis/ dorsalis pedis, no cyanosis, no edema Neuro: Awake alert oriented x3 Psych: Normal mood and affect G/U: No Aiken Right-sided chest tube in place Skin: no rashes, warm and dry Lymphatic: no cervical or axillary lymphadenopathy Results & Data Results & Data ([facility]) Vital Signs (Past 12 Hours) Vital Signs Temp Pulse Resp BP BP Pulse Ox 10/17/20 12:04 36.8 C 78 18 118/78 95 10/17/20 07:51 37.0 C 72 16 114/73 92 10/17/20 05:35 10/17/20 05:35 PG Care Time/CCT Total # of Minutes Spent Total Time Spent with Patient: Total time spent is greater than 50% in coordination of care (as documented) at patient's floor/unit and/or counseling patient: Coding Level of Care Code 61746 Subseq Hosp Care Lvl 3 Diagnoses Loculated pleural effusion J90 Pneumonia J18.9
[2020-10-17] MEDS: levoFLOXacin/D5W 750 MG/150 ML BAG IV SCH (15:30)
[2020-10-17] MEDS: POTASSIUM CHLORIDE CRTAB 20 MEQ TABCR PO SCH (21:14)
--- NOTE | 2020-10-17 22:20 | Hospitalist Progress Note ---
Date of Service October 17, 2020 Assessment & Plan (1) Loculated pleural effusion: Mrs. Engel is a 55 year old female with a history of Pseudotumor Cerebri and Obesity who developed a Dry Non-productive Cough over several weeks followed by New Onset Exertional Dyspnea 4 days ago. Patient contacted her PCP and was prescribed Levaquin 750 mg daily along with an anti-tussive. CXR was ordered by PCP showing a large right pleural effusion. Patient was referred to pulmonology -- Dr. Mccall met with her yesterday and arranged for a thoracentesis today. Her Parapneumonic Pleural Effusion appears to be loculated, so a chest tube was inserted. Fluid sent for analysis, culture, etc and admission was recommended for further evaluation and monitoring. -- Admit to Med-Surg. -- Blood cultures x 2. -- Septic workup. -- Appears exudative. -will continue current antibiotics as stated below -- repeat ct scan -- IV Levaquin 750 mg q 24 hours. -- Chest tube attached to vacuum. -- Chest tube level 520 mL. -- Continue anti-tussive as needed. -- Dr. Mccall consulted. -- DVT prophylaxis. (2) Pneumonia: as stated above. Admission and Anticipated Discharge Date Admission Date: October 15, 2020 Subjective Patient reports no new complaints. Review of Systems Review of Systems: All systems reviewed & are unremarkable except as noted in HPI & below Physical Exam Physical Exam: GENERAL: Patient in no acute distress. HEENT: Head is atraumatic, normocephalic. EOM's intact. Facies symmetric. No perioral cyanosis. NECK: No JVD. JVP is at the level of the clavicle sitting upright. Carotid upstrokes are + 2 bilaterally. No bruits are noted. CHEST/LUNGS: Absent breath sounds in right lower chest. Otherwise lungs clear. Chest tube in right lateral chest. CVS: S1 and S2 are regular without murmurs, gallops, or rubs. PMI is nondisplaced. No lifts, heaves, or thrills. No abdominal aortic or renal bruits. ABDOMINAL EXAM: Bowel sounds are present. No masses, organomegaly, or tenderness. EXTREMITIES: No clubbing or cyanosis. No edema. Intact posterior tibial and radial pulses bilaterally. NEUROLOGIC EXAM: Patient is awake, alert, and oriented. Pleasant and cooperative. Answers questions appropriately. Speech is clear. Normal movement in all 4 extremities. Gait pattern was not assessed. Results & Data Results & Data ([facility]) Vital Signs (Past 12 Hours) Vital Signs Temp Pulse Pulse Resp BP BP Pulse Ox 10/17/20 15:00 36.7 C 80 18 133/84 95 10/17/20 12:04 36.8 C 78 18 118/78 95 PG Care Time/CCT Total # of Minutes Spent Total Time Spent with Patient: Total time spent is greater than 50% in coordination of care (as documented) at patient's floor/unit and/or counseling patient: Coding Level of Care Code 30695 Subseq Hosp Care Lvl 2 Diagnoses Loculated pleural effusion J90 Pneumonia J18.9 Time Spent (min) 25
[2020-10-18] MEDS: ALTEPLASE, RECOMBINANT 10 MG in SYRINGE 50 ML IPL SCH (05:53)
[2020-10-18] MEDS: HEPARIN SOD 5,000 UNIT/0.5 ML VIAL SQ SCH ×3 (06:04→21:05)
[2020-10-18] MEDS: DORNASE ALFA 5 ML in SYRINGE 25 ML IPL SCH (07:32)
--- NOTE | 2020-10-18 07:48 | XRay Report ---
XR chest 1V portable CLINICAL HISTORY: f/u COMPARISON STUDY: Chest radiograph October 17, 2020. FINDINGS: Right pleural catheter remains in place. No pneumothorax is identified. Cardiac size is nor mal. Small right pleural effusion is noted with right mid and lower lung airspace opacity. IMPRESSION: Right pleural catheter in place. No pneumothorax. Small right pleural effusion with pers istent right mid and lower lung airspace opacity. ACT 112: Negative or not required by law. Electronically signed by: Femi Stubbs M.D. 10/18/2020 7:47 AM
[2020-10-18] MEDS: POTASSIUM CHLORIDE CRTAB 20 MEQ TABCR PO SCH ×2 (08:43→21:03)
[2020-10-18] MEDS: acetaZOLAMIDE 250 MG TAB PO SCH ×3 (08:43→21:03)
--- NOTE | 2020-10-18 12:55 | CT Scan Report ---
CT SCAN OF THE CHEST WITHOUT IV CONTRAST CLINICAL HISTORY: Follow-up pleural effusion. Chest tube. COMPARISON STUDY: Chest CT dated 10/12/2020. Chest x-ray dated 10/18/2020. TECHNIQUE: Unenhanced CT scan of the thorax was performed from the thoracic inlet to the upper abdome n. Images are reviewed in the axial, sagittal, and coronal planes. IV contrast was not administered f or this examination. A dose lowering technique was utilized adhering to the principles of ALARA. Exa mination is degraded by motion artifact. CT DOSE: 1188.88 mGy.cm FINDINGS: Thyroid: The thyroid gland is enlarged and heterogeneous. There are numerous subcentimeter low-attenu ation nodules as well as coarse calcifications. Thoracic aorta: The thoracic aorta is normal in caliber and demonstrates standard 3-vessel arch anato my. Heart: The heart is normal in size and without pericardial effusion. Lungs and pleural spaces: Evaluation of the lung parenchyma is compromised by motion artifact. A righ t-sided chest tube is in place. This enters anteriorly between the 4th and 5th ribs, with the tip coi led in the anterior right upper pleural space. There is a moderate residual right pleural effusion wi th persistent atelectasis of the right lower lung. This has decreased in size from previous. The ches t tube is located above and anterior to the residual effusion. There is a small right-sided pneumotho rax. Trace left pleural effusion is noted. Again seen is a 10 mm pleural-based nodule in the left low er lobe seen on image #168. The left lung is otherwise clear. The trachea and central airways are pat ent. Mediastinum: Scattered subcentimeter mediastinal lymph nodes are not pathologically enlarged by size criteria. Chanel: Not well assessed without IV contrast. Axillae: There is no axillary lymphadenopathy. Upper abdomen: A tiny hiatal hernia is noted. Partially visualized upper abdominal viscera is otherwi se grossly unremarkable. Skeletal structures: Degenerative changes noted in the thoracic spine. No lytic or blastic bony lesio ns are seen. IMPRESSION: 1. A right-sided chest tube has been placed as above. There is a small right-sided pneumothorax. 2. The right pleural effusion has decreased in size from previous. There is a moderate residual right pleural effusion with significant atelectasis of the right lower lung. 3. The chest tube is located above and anterior to the remaining pleural effusion. 4. There is trace left pleural effusion. 5. An indeterminant 10 mm pleural-based nodular density is again seen at the left lung base. This uday uld be followed as per the Fleischner criteria. See below. 6. Additional findings as above. Please refer to below summary of Fleischner criteria recommendations for follow-up of incidental CT n odules (Connie Nicholas, Guidelines for management of small pulmonary nodules detected on CT scans: A sta tement from the Fleischner Society, Radiology 237: [phone].) SOLID NODULES Solitary nodule size: <6 mm * low risk patients: no follow-up needed * high risk patients: optional CT at 12 months Solitary nodule size: 6-8 mm * low risk patients: follow-up at 6-12 months, then consider further follow-up at 18-24 months * high risk patients: initial follow-up CT at 6-12 months and then at 18-24 months if no change Solitary nodule size: >8 mm * either low or high risk patients - consider follow-up CT at 3 months, and/or CT-PET, and/or biopsy Multiple nodules size: <6 mm * low risk patients: no routine follow-up * high risk patients: optional CT at 12 months Multiple nodules size: 6-8 mm * low risk patients: follow-up at 3-6 months, then consider further follow-up at 18-24 months * high risk patients: follow-up at 3-6 months, then at 18-24 months if no change Multiple nodules size: >8 mm * low risk patients: follow-up at 3-6 months, then consider further follow-up at 18-24 months * high risk patients: follow-up at 3-6 months, then at 18-24 months if no change Note: newly detected indeterminate nodule in persons 35 years of age or older. * low risk patients: minimal or absent history of smoking and/or other known risk factors * high risk patients: history of smoking or of other known risk factors (e.g. first degree relative with lung cancer, or exposure to asbestos, radon, uranium) * if a nodule up to 8 mm is partly solid or is ground glass further follow-up is required after 24 m onths to exclude possible slow growing adenocarcinoma (DANIEL) SUBSOLID NODULES Solitary pure ground-glass nodule * nodule size <6 mm - no CT follow-up required * nodule size >=6 mm - follow-up CT at 6-12 months, then every 2 years until 5 years Solitary part-solid nodule * nodule size <6 mm - no CT follow-up required * nodule size >=6 mm - follow-up CT at 3-6 months. If unchanged, and solid component remains <6 mm, then annual follow-up for 5 years Multiple subsolid nodules * nodule size <6 mm - follow-up CT at 3-6 months, consider further follow-up at 2 and 4 years if sta ble * nodule size >=6 mm - follow-up CT at 3-6 months, subsequent management based on the most suspiciou s nodule(s) ACT 112: Negative or not required by law. Electronically signed by: Marlon Helm M.D. 10/18/2020 12:53 PM
--- NOTE | 2020-10-18 12:57 | Pulmonology Progress Note ---
Date of Service October 18, 2020 Assessment & Plan (1) Loculated pleural effusion: --Loculated right-sided pleural effusion S/p pigtail catheter placement 10/15/2020, fluid exudative as per lights criteria Mostly lymphocytic Pleural fluid: LDH 323, protein 4.6, pH 7.29, glucose 76 Serum: LDH 153, total protein 7.4 Likely represents parapneumonic effusion. Cultures negative to date. S/p Ms. protocol. Last dose being morning 10/18/2020 --Right lower lobe pneumonia COVID-19 PCR negative ESR 81 Continue with antibiotics Procalcitonin 0.05 Plan: No pneumothorax appreciated on chest x-ray today. I increased the suction to -40. Chest tube level 1270 mL. No airleak appreciated. Patient has completed mist protocol. I will repeat CT chest without contrast today. Continue with antibiotics for total of 10 days Please note the above document was generated using voice recognition software. It may contain grammatical, syntax or spelling errors.Any formal questions or concerns about the content, text or information contained within the body of this dictation should be directly addressed to the provider for clarification. (2) Pneumonia: Admission and Anticipated Discharge Date Admission Date: October 15, 2020 Subjective Patient seen and examined at bedside. No acute distress, no adverse events overnight. Denies any chest pain. Does cough when she takes deep breath. No nausea or vomiting. Patient has finished 6 doses of Mist protocol earlier today morning. Would continue with suction. Review of Systems Review of Systems: All systems reviewed & are unremarkable except as noted in Subjective Physical Exam Physical Exam: Constitutional: No acute distress HEENT: EOMI, PERRLA Respiratory system: Good air entry bilaterally, no wheeze, no rhonchi, minimal crackles right lower lobe CVS: S1-S2 positive, no murmurs or gallops Abdomen: Soft, nontender, nondistended, positive bowel sounds x4, obese Extremities: +2 pulses bilaterally radialis/ dorsalis pedis, no cyanosis, no edema Neuro: Awake alert oriented x3 Psych: Normal mood and affect G/U: No Aiken Right-sided chest tube in place Skin: no rashes, warm and dry Lymphatic: no cervical or axillary lymphadenopathy Results & Data Results & Data ([facility]) Vital Signs (Past 12 Hours) Vital Signs Temp Pulse Resp BP Pulse Ox 10/18/20 12:00 36.5 C 72 22 120/73 97 10/18/20 07:36 36.9 C 74 20 127/75 94 10/17/20 05:35 10/17/20 05:35 PG Care Time/CCT Total # of Minutes Spent Total Time Spent with Patient: Total time spent is greater than 50% in coordination of care (as documented) at patient's floor/unit and/or counseling patient: Coding Level of Care Code 72277 Subseq Hosp Care Lvl 3 Diagnoses Loculated pleural effusion J90 Pneumonia J18.9
[2020-10-18] MEDS: ACETAMINOPHEN 325 MG TAB PO PRN ×2 (13:54→21:03)
[2020-10-18] MEDS: levoFLOXacin/D5W 750 MG/150 ML BAG IV SCH (16:21)
--- NOTE | 2020-10-18 21:57 | Hospitalist Progress Note ---
Date of Service October 18, 2020 Assessment & Plan (1) Loculated pleural effusion: Mrs. Engel is a 55 year old female with a history of Pseudotumor Cerebri and Obesity who developed a Dry Non-productive Cough over several weeks followed by New Onset Exertional Dyspnea 4 days ago. Patient contacted her PCP and was prescribed Levaquin 750 mg daily along with an anti-tussive. CXR was ordered by PCP showing a large right pleural effusion. Patient was referred to pulmonology -- Dr. Mccall met with her yesterday and arranged for a thoracentesis today. Her Parapneumonic Pleural Effusion appears to be loculated, so a chest tube was inserted. Fluid sent for analysis, culture, etc and admission was recommended for further evaluation and monitoring. -- Admit to Med-Surg. -- Blood cultures x 2. -- Septic workup. -- Appears exudative. -will continue current antibiotics as stated below -- repeat ct scan -- IV Levaquin 750 mg q 24 hours. -- Chest tube attached to vacuum. -- Repeat CT scan of chest shows: There is a moderate residual right pleural effusion with significant atelectasis of the right lower lung. -- keep chest tube in. recommend patient sits in chair as she has been in bed during prior days. -- Pulm will see patient on 10/19 -- Continue anti-tussive as needed. -- Dr. Mccall consulted. -- DVT prophylaxis. (2) Pneumonia: as stated above. Admission and Anticipated Discharge Date Admission Date: October 15, 2020 Subjective Patient reports feeling better. No complaints. Review of Systems Review of Systems: All systems reviewed & are unremarkable except as noted in HPI & below Physical Exam Physical Exam: GENERAL: Patient in no acute distress. HEENT: Head is atraumatic, normocephalic. EOM's intact. Facies symmetric. No perioral cyanosis. NECK: No JVD. JVP is at the level of the clavicle sitting upright. Carotid upstrokes are + 2 bilaterally. No bruits are noted. CHEST/LUNGS: Absent breath sounds in right lower chest. Otherwise lungs clear. Chest tube in right lateral chest. CVS: S1 and S2 are regular without murmurs, gallops, or rubs. PMI is nondisplaced. No lifts, heaves, or thrills. No abdominal aortic or renal bruits. ABDOMINAL EXAM: Bowel sounds are present. No masses, organomegaly, or tenderness. EXTREMITIES: No clubbing or cyanosis. No edema. Intact posterior tibial and radial pulses bilaterally. NEUROLOGIC EXAM: Patient is awake, alert, and oriented. Pleasant and cooperative. Answers questions appropriately. Speech is clear. Normal movement in all 4 extremities. Gait pattern was not assessed. Results & Data Results & Data ([facility]) Vital Signs (Past 12 Hours) Vital Signs Temp Pulse Pulse Resp BP BP Pulse Ox 10/18/20 15:59 36.7 C 78 20 137/82 96 10/18/20 12:00 36.5 C 72 22 120/73 97 PG Care Time/CCT Total # of Minutes Spent Total Time Spent with Patient: Total time spent is greater than 50% in coordination of care (as documented) at patient's floor/unit and/or counseling patient: Coding Level of Care Code 69332 Subseq Hosp Care Lvl 2 Diagnoses Loculated pleural effusion J90 Pneumonia J18.9 Time Spent (min) 25
[2020-10-19] MEDS: ACETAMINOPHEN 325 MG TAB PO PRN (05:44)
[2020-10-19] MEDS: HEPARIN SOD 5,000 UNIT/0.5 ML VIAL SQ SCH (05:45)
[2020-10-19] MEDS: acetaZOLAMIDE 250 MG TAB PO SCH (07:35)
[2020-10-19] MEDS: POTASSIUM CHLORIDE CRTAB 20 MEQ TABCR PO SCH (07:35)
--- NOTE | 2020-10-19 08:30 | XRay Report ---
XR chest 1V not portable CLINICAL HISTORY: Right-sided chest tube. COMPARISON STUDY: 10/18/2020 FINDINGS: The cardiac and mediastinal contours remain stable. The right-sided pleural pigtail cathete r remains unchanged in position. There is persistent right pleural effusion with associated right mid and lower lung zone airspace opacities. No pneumothorax is visualized.[ IMPRESSION: 1. No change in position of the right-sided pleural pigtail catheter 2. No pneumothorax 3. Persistent right pleural effusion with associated right mid and lower lung zone airspace opacities ACT 112: Negative or not required by law. Electronically signed by: Patrice Baptiste M.D. 10/19/2020 8:28 AM
--- NOTE | 2020-10-19 08:34 | Hospitalist Progress Note ---
Date of Service October 19, 2020 Assessment & Plan (1) Loculated pleural effusion: Mrs. Engel is a 55 year old female with a history of Pseudotumor Cerebri and Obesity who developed a Dry Non-productive Cough over several weeks followed by New Onset Exertional Dyspnea 4 days ago. Patient contacted her PCP and was prescribed Levaquin 750 mg daily along with an anti-tussive. CXR was ordered by PCP showing a large right pleural effusion. Patient was referred to pulmonology -- Dr. Mccall met with her yesterday and arranged for a thoracentesis today. Pulmonary on consult Parapneumonic pleural effusion appeared to be loculated s/p pigtail catheter insertion 10/[address] Mccall Fluid sent for analysis, culture, etc and admission was recommended for further evaluation and monitoring --> EXUDATIVE per Lights criteria Continues on Levaquin IV Q24h (started 10/15, on day 4 of therapy) Repeat CT Chest 10/18: * There is a moderate residual right pleural effusion with significant atelectasis of the right lower lung. * Keep chest tube in. recommend patient sits in chair as she has been in bed during prior days. (increased to suction 10/18 by pulmonary) Completed MIST II protocol on 10/18 Antitussive prn (2) Pneumonia: as stated above -- on Levaquin IV (3) Pseudotumor cerebri: Hx of Continue acetazolamide 250mg PO TID (4) DVT prophylaxis: Heparin SQ while inpatient Admission and Anticipated Discharge Date Admission Date: October 15, 2020 Results & Data Results & Data ([facility]) Vital Signs (Past 12 Hours) Vital Signs Temp Pulse Resp BP Pulse Ox 10/19/20 07:04 36.8 C 70 16 126/82 96 10/18/20 23:35 36.9 C 77 18 135/77 95 PG Care Time/CCT Total # of Minutes Spent Total Time Spent with Patient: Total time spent is greater than 50% in coordination of care (as documented) at patient's floor/unit and/or counseling patient: Coding Diagnoses Loculated pleural effusion J90 Pneumonia J18.9 Pseudotumor cerebri G93.2 DVT prophylaxis Z29.9
[2020-10-19 08:58] LABS: Basophils # (auto) 0.04 K/uL (0-0.2); Basophils % (auto) 0.5 %; Eosinophils # (auto) 0.28 K/uL (0-0.5); Eosinophils % (auto) 3.3 %; Hematocrit (blood only) 42.4 % (37-47); Hemoglobin 14.2 g/dL (12.0-16.0); Immature Granulocytes % (auto) 1.2 %; Lymphocytes # (auto) 1.46 K/uL (1.2-3.4); Lymphocytes % (auto) 17.3 %; Mean Corpuscular Hemoglobin 29.1 pg (25-34); Mean Corpuscular Hgb Conc 33.5 g/dL (32-36); Mean Corpuscular Volume 86.9 fL (80-100); Mean Platelet Volume 9.3 fL (7.4-10.4); Monocytes # (auto) 0.79 K/uL (0.11-0.59); Monocytes % (auto) 9.4 %; Neutrophils # (auto) 5.76 K/uL (1.4-6.5); Neutrophils % (auto) 68.3 %; Platelet Count 414 K/uL (130-400); RDW Coefficient of Variation 13.6 % (11.5-14.5); Red Blood Count 4.88 M/uL (4.2-5.4); White Blood Count 8.43 K/uL (4.8-10.8)
[2020-10-19 09:29] LABS: Potassium 3.7 mmol/L (3.5-5.1)
[2020-10-19 09:30] LABS: BUN Creatinine Ratio 15.1 (10-20); Creatinine Clr Calc Pharmacy 111.3 ml/min; Est GFR (African American) 100.6 ml/min; Est GFR (Non-African American) 86.8 ml/min; Magnesium 2.4 mg/dl (1.8-2.4)
--- NOTE | 2020-10-19 11:55 | Discharge Summary ---
Date of Service October 19, 2020 Admission HPI Per Admitting Provider Mrs. Engel is a 55 year old female with a history of Pseudotumor Cerebri and Obesity who developed a Dry Non-productive Cough over several weeks followed by New Onset Exertional Dyspnea 4 days ago. Patient contacted her PCP and was prescribed Levaquin 750 mg daily along with an anti-tussive. CXR was ordered by PCP showing a large right pleural effusion. Patient was referred to pulmonology -- Dr. Mccall met with her yesterday and arranged for a thoracentesis today. Her Parapneumonic Pleural Effusion appears to be loculated, so a chest tube was inserted. Fluid sent for analysis, culture, etc and admission was recommended. 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 She offers no complaints. She denies any fever, chills, chest pain, pain at chest tube site, or any hemoptysis. She works as an accountant systems and a fur farmer. Admission Exam Per Admitting Provider GENERAL: Patient in no acute distress. HEENT: Head is atraumatic, normocephalic. EOM's intact. Facies symmetric. No perioral cyanosis. NECK: No JVD. JVP is at the level of the clavicle sitting upright. Carotid upstrokes are + 2 bilaterally. No bruits are noted. CHEST/LUNGS: Absent breath sounds in right lower chest. Otherwise lungs clear. Chest tube in right lateral chest. CVS: S1 and S2 are regular without murmurs, gallops, or rubs. PMI is nondisplaced. No lifts, heaves, or thrills. No abdominal aortic or renal bruits. ABDOMINAL EXAM: Bowel sounds are present. No masses, organomegaly, or tenderness. EXTREMITIES: No clubbing or cyanosis. No edema. Intact posterior tibial and radial pulses bilaterally. NEUROLOGIC EXAM: Patient is awake, alert, and oriented. Pleasant and cooperative. Answers questions appropriately. Speech is clear. Normal movement in all 4 extremities. Gait pattern was not assessed. Principal Diagnosis Parapneumonic Effusion Discharge Exam Constitutional WD/WN, vitals as above + obese, comfortable and + combative; no acute distress Eyes + anicteric sclerae and PERRL ENMT Ears: no hearing impairment and no external ear abnormality Neck normal visual inspection and trachea midline Respiratory normal respiratory effort and able to speak in complete sentences; no respiratory distress, no labored breathing, no cough and not tachypneic Auscultation: + crackles (RLL); no rales, no rhonchi and no wheezes Cardiovascular RRR, no murmur, no edema Gastrointestinal (Abdomen) normal bowel sounds, soft, nontender, no hepatosplenomegaly Musculoskeletal no cyanosis or clubbing, extremities motor strength 5/5 Skin no rashes, warm and dry Neurologic patellar DTR's 2+ bilat, sensation intact Psychiatric A+Ox3, euthymic affect Genitourinary NO FUENTES Lymphatic no cervical or axillary lymphadenopathy Discharge Data Allergies Allergy/AdvReac Type Severity Reaction Status Date / Time morphine AdvReac Severe N/V Verified 10/14/20 08:57 Consultations 10/15/20 15:31 Consult Pulmonology Routine Procedures Performed Operation Date: 10/15/20 12:00 Actual Procedures p Thoracentesis, Right Pigtail Catheter Placement(Right) - Lou Mccall MD p Chest Tube Insertion (Right) - Lou Mccall MD Ordered Studies Chest X-Ray 10/15/20 12:36 SINGLE VIEW CHEST CLINICAL HISTORY: Chest tube placement. FINDINGS: An AP, portable, upright chest radiograph is compared to chest x-ray and chest CT dated 10/12/2020. The cardiomediastinal silhouette is unremarkable. A pigtail chest tube projects over the right lower chest. There is a residual loculated right pleural effusion with right basilar consolidation. This is decreased in size from previous. The left lung appears clear. No pneumothorax is seen. The skeletal structures are osteopenic. The bony thorax is grossly intact. IMPRESSION: 1. A right-sided chest tube has been placed as above. 2. There is a residual right pleural effusion with associated right basilar consolidation. This has decreased in size from previous. 3. No pneumothorax is seen. ACT 112: Negative or not required by law. Electronically signed by: Marlon Helm M.D. 10/15/2020 12:53 PM Chest X-Ray 10/16/20 08:00 XR chest 1V portable CLINICAL HISTORY: Chest tube follow-up COMPARISON STUDY: 10/15/2020 FINDINGS: The cardiac and mediastinal contours remain stable. There is a right- sided pigtail pleural catheter. There is no pneumothorax. There is improving aeration of the right lung base. Trace right pleural fluid is suspected.[ IMPRESSION: 1. No change in position of the right-sided chest tube 2. Decreasing right pleural effusion with improving aeration of the right lung base. ACT 112: Negative or not required by law. Electronically signed by: Patrice Baptiste M.D. 10/16/2020 8:24 AM Chest X-Ray 10/17/20 08:00 XR chest 1V portable CLINICAL HISTORY: f/u COMPARISON STUDY: Chest CT October 12, 2020. Chest radiograph October 16, 2020. FINDINGS: Right pleural catheter remains in place. There has been interval development of a small lateral right hemithorax. Trace residual right pleural effusion is noted with mild right lung airspace opacity, slightly increased since prior exam. Cardiac size is normal. IMPRESSION: 1. Right pleural catheter in place. Interval development of a small right pneumothorax. 2. No significant change in a trace residual right pleural effusion. Slight increase in right lung airspace opacity. . ACT 112: Negative or not required by law. Electronically signed by: Femi Stubbs M.D. 10/17/2020 7:37 AM Chest X-Ray 10/18/20 08:00 XR chest 1V portable CLINICAL HISTORY: f/u COMPARISON STUDY: Chest radiograph October 17, 2020. FINDINGS: Right pleural catheter remains in place. No pneumothorax is identified. Cardiac size is normal. Small right pleural effusion is noted with right mid and lower lung airspace opacity. IMPRESSION: Right pleural catheter in place. No pneumothorax. Small right pleural effusion with persistent right mid and lower lung airspace opacity. ACT 112: Negative or not required by law. Electronically signed by: Femi Stubbs M.D. 10/18/2020 7:[address] 10/18/20 12:19 CT SCAN OF THE CHEST WITHOUT IV CONTRAST CLINICAL HISTORY: Follow-up pleural effusion. Chest tube. COMPARISON STUDY: Chest CT dated 10/12/2020. Chest x-ray dated 10/18/2020. TECHNIQUE: Unenhanced CT scan of the thorax was performed from the thoracic inlet to the upper abdomen. Images are reviewed in the axial, sagittal, and coronal planes. IV contrast was not administered for this examination. A dose lowering technique was utilized adhering to the principles of ALARA. Examination is degraded by motion artifact. CT DOSE: 1188.88 mGy.cm FINDINGS: Thyroid: The thyroid gland is enlarged and heterogeneous. There are numerous subcentimeter low-attenuation nodules as well as coarse calcifications. Thoracic aorta: The thoracic aorta is normal in caliber and demonstrates standard 3-vessel arch anatomy. Heart: The heart is normal in size and without pericardial effusion. Lungs and pleural spaces: Evaluation of the lung parenchyma is compromised by motion artifact. A right-sided chest tube is in place. This enters anteriorly between the 4th and 5th ribs, with the tip coiled in the anterior right upper pleural space. There is a moderate residual right pleural effusion with persistent atelectasis of the right lower lung. This has decreased in size from previous. The chest tube is located above and anterior to the residual effusion. There is a small right-sided pneumothorax. Trace left pleural effusion is noted. Again seen is a 10 mm pleural-based nodule in the left lower lobe seen on image #168. The left lung is otherwise clear. The trachea and central airways are patent. Mediastinum: Scattered subcentimeter mediastinal lymph nodes are not pathologically enlarged by size criteria. Chanel: Not well assessed without IV contrast. Axillae: There is no axillary lymphadenopathy. Upper abdomen: A tiny hiatal hernia is noted. Partially visualized upper abdominal viscera is otherwise grossly unremarkable. Skeletal structures: Degenerative changes noted in the thoracic spine. No lytic or blastic bony lesions are seen. IMPRESSION: 1. A right-sided chest tube has been placed as above. There is a small right- sided pneumothorax. 2. The right pleural effusion has decreased in size from previous. There is a moderate residual right pleural effusion with significant atelectasis of the right lower lung. 3. The chest tube is located above and anterior to the remaining pleural effusion. 4. There is trace left pleural effusion. 5. An indeterminant 10 mm pleural-based nodular density is again seen at the left lung base. This should be followed as per the Fleischner criteria. See below. 6. Additional findings as above. Please refer to below summary of Fleischner criteria recommendations for follow- up of incidental CT nodules (Connie Nicholas, Guidelines for management of small pulmonary nodules detected on CT scans: A statement from the Fleischner Society, Radiology 237: [phone].) SOLID NODULES Solitary nodule size: <6 mm * low risk patients: no follow-up needed * high risk patients: optional CT at 12 months Solitary nodule size: 6-8 mm * low risk patients: follow-up at 6-12 months, then consider further follow-up at 18-24 months * high risk patients: initial follow-up CT at 6-12 months and then at 18-24 months if no change Solitary nodule size: >8 mm * either low or high risk patients - consider follow-up CT at 3 months, and/or CT-PET, and/or biopsy Multiple nodules size: <6 mm * low risk patients: no routine follow-up * high risk patients: optional CT at 12 months Multiple nodules size: 6-8 mm * low risk patients: follow-up at 3-6 months, then consider further follow-up at 18-24 months * high risk patients: follow-up at 3-6 months, then at 18-24 months if no change Multiple nodules size: >8 mm * low risk patients: follow-up at 3-6 months, then consider further follow-up at 18-24 months * high risk patients: follow-up at 3-6 months, then at 18-24 months if no change Note: newly detected indeterminate nodule in persons 35 years of age or older. * low risk patients: minimal or absent history of smoking and/or other known risk factors * high risk patients: history of smoking or of other known risk factors (e.g. first degree relative with lung cancer, or exposure to asbestos, radon, uranium) * if a nodule up to 8 mm is partly solid or is ground glass further follow-up is required after 24 months to exclude possible slow growing adenocarcinoma (DANIEL) SUBSOLID NODULES Solitary pure ground-glass nodule * nodule size <6 mm - no CT follow-up required * nodule size >=6 mm - follow-up CT at 6-12 months, then every 2 years until 5 years Solitary part-solid nodule * nodule size <6 mm - no CT follow-up required * nodule size >=6 mm - follow-up CT at 3-6 months. If unchanged, and solid component remains <6 mm, then annual follow-up for 5 years Multiple subsolid nodules * nodule size <6 mm - follow-up CT at 3-6 months, consider further follow-up at 2 and 4 years if stable * nodule size >=6 mm - follow-up CT at 3-6 months, subsequent management based on the most suspicious nodule(s) ACT 112: Negative or not required by law. Electronically signed by: Marlon Helm M.D. 10/18/2020 12:53 PM Chest X-Ray 10/19/20 08:00 XR chest 1V not portable CLINICAL HISTORY: Right-sided chest tube. COMPARISON STUDY: 10/18/2020 FINDINGS: The cardiac and mediastinal contours remain stable. The right-sided pleural pigtail catheter remains unchanged in position. There is persistent right pleural effusion with associated right mid and lower lung zone airspace opacities. No pneumothorax is visualized.[ IMPRESSION: 1. No change in position of the right-sided pleural pigtail catheter 2. No pneumothorax 3. Persistent right pleural effusion with associated right mid and lower lung zone airspace opacities ACT 112: Negative or not required by law. Electronically signed by: Patrice Baptiste M.D. 10/19/2020 8:28 AM Hospital Course (1) Loculated pleural effusion: Mrs. Engel is a 55 year old female with a history of Pseudotumor Cerebri and Obesity who developed a Dry Non-productive Cough over several weeks followed by New Onset Exertional Dyspnea 4 days ago. Patient contacted her PCP and was prescribed Levaquin 750 mg daily along with an anti-tussive. CXR was ordered by PCP showing a large right pleural effusion. Patient was referred to pulmonology -- Dr. Mccall met with her and arranged for a thoracentesis. * Pulmonary on consult * Parapneumonic pleural effusion appeared to be loculated * s/p pigtail catheter insertion 10/[address] Mccall * Fluid sent for analysis, culture, etc and admission was recommended for further evaluation and monitoring --> EXUDATIVE per Lights criteria with lymphocytic predominance, but did not appear to be an Empyema. * Cytology negative. * Continues on Levaquin IV Q24h (started 10/15, on day 4 of therapy) * Repeat CT Chest 10/18: There is a moderate residual right pleural effusion with significant atelectasis of the right lower lung. Kept chest tube in and rec'd patient sits in chair as she has been in bed during prior days. (increased to suction 10/18 by pulmonary) * --> Also noted 10 mm pleural-based nodular density again seen at the left lung base which will need follow up with pulmonary/repeat imaging per Fleischner criteria * Completed MIST II protocol on 10/18 * Antitussive prn * Chest tube removed AM 10/[address] Michel (tolerated well) -- provided patient with option for repeat thoracentesis today (day of discharge) however patient preferred to have follow up xray and undergo thoracentesis at that time if needed based on follow-up. * 2step prior to discharge WITHOUT needs for oxygen at discharge * Continued antibiotics with LEVAQUIN for total of TEN DAYS (already with 7 days at home from Dr. Horowitz) * To have follow up and xray with pulmonary in one week at discharge (2) Pneumonia: * as stated above -- on Levaquin IV (3) Pseudotumor cerebri: * Hx of such -- continued acetazolamide 250mg PO TID (4) DVT prophylaxis: * Heparin SQ while inpatient Discharged home. F/u with pulmonary and PCP as above Total Time Total Time Spent Total Time Spent (In Minutes): 65 Discharge Plan Discharge Items Patient Disposition: Home - Self-Care Reason For Visit: Pleural Effusion Discharge Diagnosis: Pleural Effusion, Pneumonia Goals: You have been hospitalized for an urgent problem which required surgery. During your stay at [facility], we have made an effort to correct the problem that brought you to the hospital while keeping you as comfortable as possible. Surgery and medications were used to bring your condition under control and your discharge instructions will include directions for any medications you should take after leaving the hospital. Please make sure to follow the advice of your surgeon regarding follow up with the surgeon and with your primary care provider. Activity: Resume your previous activity Non-emergency contact: Primary Care Provider and Factory Representative Call non-emergency contact if: you have any medication questions, your symptoms worsen, your pain is not controlled and you have a fever Follow-up/Referrals: Lou Mccall MD [Physician] - (1 week) Guy Horowitz MD [Primary Care Provider] - Diet: Heart Healthy Addtl Attending Provider Instructions: You have been hospitalized for shortness of breath and found to have a pleural effusion (collection of fluid) which required consultation with pulmonary medicine and placement of a catheter to remove this fluid, which was felt to be related to a pneumonia based on findings. Chest tube has been discontinued and as per discussion with pulmonary provider, there is an area that was not able to be resolved completely with the medications instilled through the chest tube and you will be continued on Levaquin for a total of 14 days. Today's dose is day 7, and you have another 5 days worth of antibiotics, once daily, to complete this 14 day course. You should continue to use incentive spirometer to keep your lungs expanded. You will need to have follow appointment with pulmonary in one week. An appointment will be made for you, but if you do not hear from them, please call [phone] for follow up appointment. You will have a follow up chest xray at that visit to monitor your progress. You should also have follow up with your primary care provider in the next 1-2 weeks to monitor your progress. Please return to the emergency department with any worsening shortness of breath, fever, chills, chest pain, or for any other symptoms that are concerning for you. It has been a pleasure being a part of the medical team providing for you while you have been in the hospital. Take care! Pending Studies at Discharge: Yes Studies:: Acid Fast Bacilli smear/culture, gram stain/culture -- preliminary without growth to date Blood cultures -- no growth to date Stand-Alone Forms: My [facility] Medications and DC Order Prescriptions: Continued acetazolamide 250 mg Tablet 250 mg PO TID RF: 0 Robitussin A-C 2 tsp PO Q4 RF: 0 levofloxacin 750 mg Tablet 750 mg PO DAILY Qty: 5 RF: 0 Discharge Orders: Discharge Order (Routine); Ordered 10/19/20 Ordered By: Vicky Sanchez Admission Data Admit Date/Time: 10/15/20 14:10 Attending Provider: Andrew López Admit Provider: Keenan Swanson Primary Care Provider: Guy Horowitz Other Providers: Lou Mccall Coding Level of Care Code D/C Day Management >30 mins Diagnoses Loculated pleural effusion J90 Pneumonia J18.9 Pseudotumor cerebri G93.2 DVT prophylaxis Z29.9
--- NOTE | 2020-10-19 12:06 | Pulmonology Progress Note ---
Date of Service October 19, 2020 Assessment & Plan (1) Loculated pleural effusion: 55-year-old female with a past medical history of pseudotumor cerebri and morbid obesity who was in the hospital due to a right-sided pleural effusion and hypoxia. Right pleural effusion: Likely parapneumonic effusion. She is status post chest tube drainage and lytic therapy. There continues to be a small to moderate size right pleural effusion with compressive atelectasis. She is symptomatically improved. The pleural effusion does appear to be an exudate, but does not appear to be an empyema. Pleural fluid cultures are negative to date. Cytology negative as well. Blood cultures negative. No leukocytosis seen at this time. No fever. There is a lymphocytic predominance noted on the cell counts from the pleural effusion. I offered her options including performing a thoracentesis today given that the pigtail catheter does not appear to be draining the residual effusion versus repeating a chest x-ray in 1 week with continued antibiotics. Patient would prefer to have a follow-up chest x-ray and undergo thoracentesis at that time if needed. I removed the pigtail catheter at bedside. She will need a home oxygen qualification study prior to discharge. Continue antibiotics with Levaquin for total 14 days. Will need follow-up in the pulmonary clinic. Thank you. Please call with questions. (2) Pneumonia: Admission and Anticipated Discharge Date Admission Date: October 15, 2020 Subjective Patient seen examined this morning. She is ambulating about her room without issue. She denies any shortness of breath. She does have some mild chest pain around the site of the pigtail catheter insertion site. She denies any fevers or chills. Review of Systems Review of Systems: All systems reviewed & are unremarkable except as noted in HPI & below Physical Exam Physical Exam: Constitutional: No acute distress HEENT: EOMI, PERRLA Respiratory system: Good air entry bilaterally, no wheeze, no rhonchi, minimal crackles right lower lobe CVS: S1-S2 positive, no murmurs or gallops Abdomen: Soft, nontender, nondistended, positive bowel sounds x4, obese Extremities: +2 pulses bilaterally radialis/ dorsalis pedis, no cyanosis, no edema Neuro: Awake alert oriented x3 Psych: Normal mood and affect G/U: No Aiken Right-sided chest tube in place Skin: no rashes, warm and dry Lymphatic: no cervical or axillary lymphadenopathy Results & Data Results & Data ([facility]) Vital Signs (Past 12 Hours) Vital Signs Temp Pulse Resp BP Pulse Ox 10/19/20 07:04 98.2 F 70 16 126/82 96 Vital signs, labs and imaging reviewed. PG Care Time/CCT Total # of Minutes Spent Total Time Spent with Patient: Total time spent is greater than 50% in coordination of care (as documented) at patient's floor/unit and/or counseling patient: Coding Level of Care Code 27235 Subseq Hosp Care Lvl 3 Diagnoses Loculated pleural effusion J90 Pneumonia J18.9
--- NOTE | 2020-10-19 12:11 | Procedure Note ---
Procedure Note Date of Service October 19, 2020 Note The pigtail locking mechanism was unlocked. The dressings were removed. Pigtail catheter was removed upon exhalation. 4 x 4 dressings were placed on top of the small incision and the 4 x 4's were taped in place. Nurse was available at bedside. Patient tolerated the procedure well. Coding CPT Codes Pulmonary/Thoracic - Pulmonary and Thoracic: 28429 Remove lung catheter ([id number]) [facility] [place] ([place]es) Pulmonary/Thoracic Procedure 3: Pulmonary and Thoracic: 72669 Remove lung catheter
[2020-10-19] MEDS ORDERED: Nursing to Pharmacy Communication SCH (13:45)
== END 2020-10-19 14:31 | disposition home or self-care (01) | DRG 186 ==
LOC: CC 10:56 → SUATTDRO 14:10 → 3N 14:10